=== PATIENT | female | born 2000 | race Caucasian/White ===

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

== ENCOUNTER 2020-09-23 18:00 | Outpatient (RCR) | payer OTHER, SELFPAY ==
--- NOTE | 2020-09-02 09:39 | HP.PTEVAL_ITS ---
Patient's Visit Information DEBBIE ALLEN is a 20 year old F referred to Physical Therapy by Dr. Jennifer Merchant DO with a diagnosis of R UCL partial tear. Date of Evaluation: 09/02/20 Physical Therapist: Bacilio Godoy DPT - Visit Plan Frequency: 1-2x /Week Duration: 4 Weeks Plan: Start with shoulder stability, elbow stability exercises. Video analysis for throwing mechanics. Progress HEP as she returns to school in september. - Subjective Pt. is here today for her initial evaluation with diagnosis of R UCL partial tear. pt. reports having increasd pain that started in may. She had a practice and when she felt something happen. Pt. had to stop practice. She did therapy for a few month, but has been out of sports since May. 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 Pt. has been able to complet all lifting conditioning. Pt. reports no other issues ith her elbow except with throwing. 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 she did try throwing again in Jun which was still sore but not as bad, and she has not thrown since. 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 - Pain L elbow Pain Intensity (Out of 10): 0 Pain Intensity Range: 0, 4 Comment: 4/10 with throwing. - Objective POSTURE: Pt. has foward shoulder rounded. PALPATION: Pt. has slight tenderness at UCL, no pain with rest of elbow. NEURO: pt. reports no NT, normal DTR of BUEs. ROM: Pt. has good ROM of both elbow and R shoulder, but does have some mild pain with endrange elbow flexion. MMT: RUE- elbow 5/5 throughout; shoulder- flexion 4+/5, supraspinatus- 4/5 (empty can), abd 4/5 throughout; serratus anterior 4/5, shoulder ER 4+/5, IR 5/5, ext 5/5. - Special Tests R Elbow Valgus Stress Test - MCL Instability: Positive - Goals Goal 1:: LTG: Pt. to be I with HEP for shoulder stability. Goal Time Frame: 4-6 Weeks Goal 2:: STG: Pt. to have throwing analysis completed. Goal Time Frame: 2-4 Weeks Goal 3:: LTG: Pt. to have incrased RUE strength increased by 1/2 grade throughout. Goal Time Frame: 4-6 Weeks Goal 4:: LTG: Pt. to throw without increase in R elbow pain. Goal Time Frame: 4-6 Weeks Goal 5:: LTG: Pt. to complete a throwing program allowing for increased tolerance with throwing. Goal Time Frame: 4-6 Weeks - Rehabilitation Potential Physical Therapy Diagnosis: Pt. has signs and symptoms consistent with R UCL partial tear. Pt. has pain with valgus stress of her eblow and has marked instability/weakness of her R shoulder. Pt. would benefit from PT to analyze her throwing mechanics, work on R shoulder and elbow stability. Rehabilitation Potential: Excellent - Anticipated Interventions Patient/Client Instruction: Educate patient on: Condition, Plan of Care, Risk Factors, Benefits of Fitness Program For the Purpose of:: To decrease pain, To decrease swelling/inflammation, To increase ROM, To improve self management, To prevent re-injury, To improve ability to perform tasks related to life management, To improve tolerance to ADL's Therapeutic Exercise to Include: Strength training, Power training, Endurance training, Body mechanics, Postural training, Flexibilty training, Passive ROM, Active ROM, Scapular Strength/Stabilization Comment: Throwing analysis For the Purpose of:: To decrease pain, To increase ROM, To improve nutrient delivery to tissue, To increase oxygenation perfusion, To improve muscle performance and motor function, To improve health of tissue, To decrease soft tissue restriction, To increase flexibility/ROM Thank you for the opportunity to evaluate your patient. For Medicare and Medicare HMO plans, please review the plan of care and approve it. It will need to be FAXED BACK to us at [phone] for Medicare purposes. For Medicare only, by signing this I certify the plan of care. Please let me know if there are questions or concerns regarding this plan of care. Physician Signature: Date:
== END 2020-09-23 19:00 | disposition home or self-care (01) ==
LOC: PT 18:00
PROVIDERS: PCP Family Medicine; Referring Provider Orthopaedic Surgery; Visit Provider Orthopaedic Surgery
DX: S53.441D Ulnar collateral ligament sprain of right elbow, subsequent encounter (principal)
CPT/HCPCS: 97110; 97161; 97530